=== PATIENT | female | born 1990 | race Caucasian/White ===

== ENCOUNTER 2022-07-10 19:31 | Emergency (ER) | payer MEDICAID ==
[~2022-07-10] VITALS: Ht 162.6 cm; Wt 68.0 kg
--- NOTE | 2022-07-10 22:08 | NUR ---
DR Velazco into eval patient.
[2022-07-10] MEDS ORDERED: D-ME473S63 PO (22:31)
[2022-07-10 22:40] VITALS: BP 126/75
--- NOTE | 2022-07-10 22:40 | NUR ---
Patient discharged to home in stable condition. Written and verbal after care instructions given. Patient verbalizes understanding of instructions. Stressed follow up or return to ER for worsening s/s.
== END 2022-07-10 22:40 | disposition home or self-care (01) ==
LOC: ER 19:31
DX: J06.9 Acute upper respiratory infection, unspecified (principal)
CPT/HCPCS: A4663